=== PATIENT | male | born 2000 | race Two or more races ===

== ENCOUNTER 2023-09-10 01:09 | Emergency (ER) | payer SELFPAY ==
[~2023-09-10] VITALS: Ht 175.3 cm; Wt 64.0 kg
[2023-09-10] MEDS: DIPHENHYDRAMINE 50MG/ML VIAL IM STA (01:57)
[2023-09-10] MEDS: LORAZEPAM 2MG/ML INJ IM STA (01:57)
[2023-09-10] MEDS: HALOPERIDOL LACTATE 5MG/ML VIAL IM STA (01:57)
[2023-09-10 03:40] LABS: CHLORIDE 107 mEq/L (98-107); POTASSIUM 3.5 mEq/L (3.5-5.1); SODIUM 143 mEq/L (136-145)
[2023-09-10 03:41] LABS: CARBON DIOXIDE 29 mEq/L (21-32)
[2023-09-10 03:42] LABS: CALCIUM 9.5 mg/dL (8.7-10.4)
[2023-09-10 03:46] LABS: CREATININE 1.2 mg/dL (0.6-1.3); GLUCOSE 82 mg/dL (70-105)
[2023-09-10 03:47] LABS: ETHANOL BLOOD < 10 mg/dL (<10); UREA NITROGEN BLOOD 5 mg/dL (9-23)
[2023-09-10 03:48] LABS: ACETAMINOPHEN 11 ug/mL (10-30)
[2023-09-10 03:49] LABS: CLARITY URINE CLEAR (CLEAR); COLOR URINE YELLOW (YELLOW); GLUCOSE URINE NEGATIVE (NEGATIVE); KETONES URINE NEGATIVE (NEGATIVE); LEUKOCYTE ESTERASE URINE NEGATIVE (NEGATIVE); NITRITE URINE NEGATIVE (NEGATIVE); OCCULT BLOOD URINE 2+ (NEGATIVE); PH URINE 7.5 (4.5-8.0); PROTEIN URINE NEGATIVE (NEGATIVE); SPECIFIC GRAVITY URINE 1.017 (1.005-1.030); UROBILINOGEN URINE 0.2 E.U./dL (0.2-1.0)
[2023-09-10 03:56] LABS: *AMPHETAMINES SCREEN URINE PRESUMPTIVE POSITIVE (NEGATIVE); *BARBITURATES SCREEN URINE NEGATIVE (NEGATIVE); *BENZODIAZEPINES SCREEN URINE PRESUMPTIVE POSITIVE (NEGATIVE); *COCAINE SCREEN URINE PRESUMPTIVE POSITIVE (NEGATIVE)
[2023-09-10 03:57] LABS: CANNABINOID URINE SCREEN PRESUMPTIVE POSITIVE (NEGATIVE); ECSTASY MDMA SCREEN URINE NEGATIVE (NEGATIVE); METHADONE URINE SCREEN NEGATIVE (NEGATIVE); OPIATES URINE SCREEN PRESUMPTIVE POSITIVE (NEGATIVE); PHENCYCLIDINE URINE SCREEN NEGATIVE (NEGATIVE)
[2023-09-10 04:10] LABS: BASOPHILS % 0.1 % (0.0-2.0); EOSINOPHILS % 1.1 % (0.0-5.0); HEMATOCRIT. 37.4 % (42.0-52.0); HEMOGLOBIN. 12.3 g/dL (14.0-18.0); LYMPHOCYTES % 7.7 % (20.0-50.0); MEAN CORPUSCULAR HGB CONC 32.9 g/dL (31.0-37.0); MEAN CORPUSCULAR VOLUME 88.3 fL (80.0-94.0); MEAN PLATELET VOLUME 8.7 fl (7.4-10.4); MONOCYTES % 6.5 % (2.0-8.0); NEUTROPHILS % 84.6 % (40.0-76.0); PLATELET 270 x1000/uL (130-400); RED BLOOD CELL COUNT 4.23 mill/uL (4.7-6.1); RED CELL DISTRIBUTION WIDTH 13.7 % (11.6-14.6); WHITE BLOOD COUNT 16.5 x1000/uL (4.5-11.0)
[2023-09-10 05:36] LABS: BACTERIA URINE NONE SEEN; RBC URINE 15-25 /hpf (0-2); SQUAMOUS EPITHELIAL CELL URINE NONE SEEN /lpf (RARE/1+); WBC URINE 0-2 /hpf (0-2)
[2023-09-10] MEDS: HALOPERIDOL LACTATE 5MG/ML VIAL IM ONE (13:51)
[2023-09-10 19:00] VITALS: O2SAT 100
[2023-09-10] MEDS: LORAZEPAM 0.5MG TABLET PO ONE (23:27)
[2023-09-11] MEDS: ONDANSETRON 4MG ODT PO ONE (03:00)
[2023-09-11] MEDS: LOPERAMIDE HCL 2MG CAPSULE PO ONE (03:00)
[2023-09-11] MEDS: LORAZEPAM 1MG TABLET PO ONE (21:30)
[2023-09-12 11:40] VITALS: BP 102/66; PULSE 71; RESP 12; TEMP 97.9
== END 2023-09-12 11:54 | disposition home or self-care (01) ==
LOC: ER 01:14
DX: F19.10 Other psychoactive substance abuse, uncomplicated (principal); G92.9 Unspecified toxic encephalopathy; F29 Unspecified psychosis not due to a substance or known physiological condition; R45.1 Restlessness and agitation; F15.10 Other stimulant abuse, uncomplicated
CPT/HCPCS: 80305; 80048; 81003; 80307; 80329; 80320; 85025; 36415; 96372; 99291; J1200; J1630; J2060; Z7610 ×4; G0480